=== PATIENT | male | born 1990 | race Hispanic/Latino ===

== ENCOUNTER 2017-02-16 08:51 | Day surgery (SDC) | payer BC ==
[2017-02-16 09:14] VITALS: BMI 19.6
[2017-02-16] MEDS ORDERED: Methylene Blue 10 mg/mL(10ml) IV ONE (10:00)
[2017-02-16] MEDS ORDERED: Lactated Ringer's 1,000 ML IV ONE (10:31)
[2017-02-16] MEDS ORDERED: Propofol 10 mg/ml Inj (20 ML) ONE ×2 (10:34)
[2017-02-16] MEDS ORDERED: Lactated Ringer's 500 ML IV SCH (10:45)
[2017-02-16 11:33] VITALS: TEMP 98.2
[2017-02-16 13:18] VITALS: BP 99/66; PULSE 83; RESP 18; O2SAT 98
== END 2017-02-16 12:30 | disposition home or self-care (01) ==
LOC: C.ENDO 08:51
PROVIDERS: ATTEND Internal Medicine Gastroenterology
DX: K51.50 Left sided colitis without complications (principal); Z79.899 Other long term (current) drug therapy
CPT/HCPCS: 45380; 88305; J2704; J3010; J7120

== ENCOUNTER 2017-02-25 14:11 | Inpatient (IN) | payer BC ==
[2017-02-25 14:11] VITALS: BMI 19.6
[2017-02-25] MEDS ORDERED: Sodium Chloride 0.9% 1,000 ML IV STA (15:16)
[2017-02-25] MEDS ORDERED: Iohexol 240 (50 ml) PO STA (15:16)
--- NOTE | 2017-02-25 15:21 | C.PDOC ---
History Of Present Illness 26yo male with history of ulcerative colitis, presents to ED with complaints of abdominal pain, present for the past 3 days. Paitent states he spoke to his GI Dr. Toro who advised him to Immodium and if it provieds no relief, present to the ER for further evaluation. The patient reports this is not the worst episode of his Ulcerative Colitis flare up but states "I just don't feel good." He reports associated nausea and loss of appetite but denies any fever or vomiting. He has no other medical complaints. Time Seen by Provider: 02/25/17 14:55 Chief Complaint (Nursing): Abdominal Pain History Per: Patient History/Exam Limitations: no limitations Onset/Duration Of Symptoms: Days Current Symptoms Are (Timing): Still Present Location Of Pain/Discomfort: Diffuse Quality Of Discomfort: "Pain" Associated Symptoms: Nausea. denies: Fever, Vomiting Additional History Per: Patient Past Medical History Reviewed: Historical Data, Nursing Documentation, Vital Signs Vital Signs: Last Vital Signs Temp 98.1 F 02/25/17 17:19 Pulse 90 02/25/17 17:19 Resp 16 02/25/17 17:19 BP 100/62 02/25/17 17:19 Pulse Ox 98 02/25/17 19:06 - Medical History PMH: Denies: Chronic Kidney Disease Other PMH: ulcerative colitis Surgical History: No Surg Hx - [facility] Procedures INFUSION OF IMMUNOSUPPRESSIVE ANTIBODY THERAPY (10/09/14) Family History: States: Unknown Family Hx - Social History Hx Alcohol Use: No Hx Substance Use: No - Immunization History Hx Tetanus Toxoid Vaccination: Yes Hx Influenza Vaccination: No Hx Pneumococcal Vaccination: No Review Of Systems Except As Marked, All Systems Reviewed And Found Negative. Constitutional: Negative for: Fever Gastrointestinal: Positive for: Nausea, Abdominal Pain. Negative for: Vomiting Physical Exam - Physical Exam Appears: Non-toxic Skin: Normal Color Head: Atraumatic, Normacephalic Eye(s): bilateral: Normal Inspection Throat: Normal Neck: Supple Chest: Symmetrical Cardiovascular: Rhythm Regular Respiratory: Normal Breath Sounds Gastrointestinal/Abdominal: Soft, Tenderness (left lower quadrant) Neurological/Psych: Oriented x3, Normal Speech ED Course And Treatment - Laboratory Results Result Diagrams: 02/25/17 15:52 02/25/17 15:52 O2 Sat by Pulse Oximetry: 98 (RA) Pulse Ox Interpretation: Normal Progress Note: Case was d/w GI data management consultant (partner of ), instructed to start Cipro, Flagyl, IV fluid. Case was d/w who accepted an admission to NH and requested to order ESR. Medical Decision Making Medical Decision Making: Impression: Ulcerative colitis exacerbation Plan: -- CT AP w/ PO & IV Contrast -- Labs -- IV Fluids -- Zofran 4mg IVP Time: 1800 PROCEDURE: CT Abdomen and Pelvis with contrast HISTORY: abd pain, h/o ulcer. colitis, colonoscopy 02/16 COMPARISON: None. TECHNIQUE: Contrast dose: 100 cc Omnipaque 350 Radiation dose: Total exam DLP = 337.32 mGy-cm. This CT exam was performed using one or more of the following dose reduction techniques: Automated exposure control, adjustment of the mA and/or kV according to patient size, and/or use of iterative reconstruction technique. FINDINGS: LOWER THORAX: Unremarkable. LIVER: Unremarkable. No gross lesion or ductal dilatation. GALLBLADDER AND BILE DUCTS: Unremarkable. PANCREAS: Unremarkable. No gross lesion or ductal dilatation. SPLEEN: Unremarkable. ADRENALS: Unremarkable. No mass. KIDNEYS AND URETERS: Unremarkable. No hydronephrosis. No solid mass. VASCULATURE: Unremarkable. No aortic aneurysm. BOWEL: Colitis extending from the mid descending colon to the sigmoid and rectum. The right hemicolon is spared. APPENDIX: No abnormalities to suggest acute appendicitis. No right lower quadrant inflammatory processes identified. PERITONEUM: Unremarkable. No free fluid. No free air. LYMPH NODES: Unremarkable. No enlarged lymph nodes. BLADDER: Unremarkable. REPRODUCTIVE: Unremarkable. BONES: No acute fracture. OTHER FINDINGS: None. IMPRESSION: Colitis, severe extending from the mid descending colon to the rectum. No loculated air, free air, drainable collection identified. Disposition - Disposition Disposition Time: 19:21 Condition: FAIR - Clinical Impression Clinical Impression: Colitis, ulcerative - PA / ASSET ACCOUNTANT / Resident Statement MD/DO has reviewed & agrees with the documentation as recorded. - Scribe Statement The provider has reviewed the documentation as recorded by the Vicente Garcia Provider Scribe Attestation: All medical record entries made by the Vicente were at my direction and personally dictated by me. I have reviewed the chart and agree that the record accurately reflects my personal performance of the history, physical exam, medical decision making, and the department course for this patient. I have also personally directed, reviewed, and agree with the discharge instructions and disposition. Decision To Admit - Pt Status Changed To: Hospital Disposition Of: Inpatient - Admit Certification Admit to Inpatient:: After my assessment, the patient will require hospitalization for at least two midnights. This is because of the severity of symptoms shown, intensity of services needed, and/or the medical risk in this patient being treated as an outpatient. - InPatient: Physician Admission Certification:: pt will need more than 2 days of hospitalization - . Bed Request Type: Regular Admitting Physician: Suraj Robert Patient Diagnosis: Colitis, ulcerative
[2017-02-25] MEDS ORDERED: Iohexol 240 (50 ml) ONE (15:34)
[2017-02-25] MEDS ORDERED: Sodium Chloride 0.9% 1,000 ML ONE (15:34)
[2017-02-25 15:57] LABS: BASO # 0.1 K/uL (0.0-0.2); BASO % 0.7 % (0.0-2.0); EOS # 0.1 K/uL (0.0-0.7); EOS % 1.3 % (0.0-4.0); HEMOGLOBIN 16.3 g/dL (12.0-18.0); LYMPH # 3.1 K/uL (1.0-4.3); MEAN CELL VOLUME 92.1 fL (80.0-94.0); MEAN CORPUSCULAR HGB CONC 35.8 g/dL (33.0-37.0); MEAN PLATELET VOLUME 8.9 fL (7.2-11.7); MONO # 0.9 K/uL (0.0-0.8); MONO % 8.1 % (0.0-10.0); NEUT # 6.5 K/uL (1.8-7.0); NEUT % 60.9 % (50.0-75.0); NRBC % 0.1 % (0.0-2.0); RBC 4.93 Mil/uL (4.40-5.90); RED CELL DISTRIBUTION WIDTH 12.5 % (11.5-14.5); WHITE BLOOD COUNT 10.6 K/uL (4.8-10.8)
[2017-02-25 16:00] LABS: URINE BACTERIA RARE (<OCC); URINE BILIRUBIN NEGATIVE (NEGATIVE); URINE BLOOD NEGATIVE (NEGATIVE); URINE CLARITY Clear (Clear); URINE COLOR Straw (YELLOW); URINE GLUCOSE (UA) NORMAL (Normal); URINE LEUKOCYTE ESTERASE NEG Leu/uL (Negative); URINE NITRATE NEGATIVE (NEGATIVE); URINE PROTEIN NEGATIVE (NEGATIVE); URINE UROBILINOGEN NORMAL mg/dL (0.2-1.0)
[2017-02-25 16:39] LABS: ALB/GLOB RATIO 1.2 (1.0-2.1); ALBUMIN 4.3 g/dL (3.5-5.0); ALT/SGPT 17 U/L (21-72); AST/SGOT 26 U/L (17-59); BLOOD UREA NITROGEN 9 mg/dL (9-20); CALCIUM 9.3 mg/dl (8.6-10.4); GFR AFRICAN-AMERICAN > 60; GFR NON-AFRICAN AMERICAN > 60; LIPASE 49 U/L (23-300)
[2017-02-25] MEDS ORDERED: Iohexol 350mg/ml 100 ML ONE (17:12)
--- NOTE | 2017-02-25 17:55 | CT ---
PROCEDURE: CT Abdomen and Pelvis with contrast HISTORY: abd pain, h/o ulcer. colitis, colonoscopy 02/16 COMPARISON: None. TECHNIQUE: Contrast dose: 100 cc Omnipaque 350 Radiation dose: Total exam DLP = 337.32 mGy-cm. This CT exam was performed using one or more of the following dose reduction techniques: Automated exposure control, adjustment of the mA and/or kV according to patient size, and/or use of iterative reconstruction technique. FINDINGS: LOWER THORAX: Unremarkable. LIVER: Unremarkable. No gross lesion or ductal dilatation. GALLBLADDER AND BILE DUCTS: Unremarkable. PANCREAS: Unremarkable. No gross lesion or ductal dilatation. SPLEEN: Unremarkable. ADRENALS: Unremarkable. No mass. KIDNEYS AND URETERS: Unremarkable. No hydronephrosis. No solid mass. VASCULATURE: Unremarkable. No aortic aneurysm. BOWEL: Colitis extending from the mid descending colon to the sigmoid and rectum. The right hemicolon is spared. APPENDIX: No abnormalities to suggest acute appendicitis. No right lower quadrant inflammatory processes identified. PERITONEUM: Unremarkable. No free fluid. No free air. LYMPH NODES: Unremarkable. No enlarged lymph nodes. BLADDER: Unremarkable. REPRODUCTIVE: Unremarkable. BONES: No acute fracture. OTHER FINDINGS: None. IMPRESSION: Colitis, severe extending from the mid descending colon to the rectum. No loculated air, free air, drainable collection identified.
[2017-02-25] MEDS ORDERED: Ciprofloxacin 400mg/200ml D5W 400 MG/200 ML BAG IV STA (18:48)
[2017-02-25] MEDS ORDERED: metroNIDAZOLE IV 500 mg/100 ml 500 MG/100 ML BAG IV STA (18:48)
[2017-02-25] MEDS ORDERED: Dextrose 5%/0.9% NS 1,000 ML IV ONE (18:49)
[2017-02-25] MEDS ORDERED: [UNRECOGNIZED DRUG - OTHER] PO SCH (19:30)
[2017-02-25 21:04] VITALS: RESP 20
--- NOTE | 2017-02-25 22:47 | CP.PCM.HP ---
History of Present Illness - History of Present Illness History of Present Illness: CC: Diarrhea x 2 days HPI: 26yo male with history of ulcerative colitis diagnosed 8 years ago,seeing GI out pateint and on immunosuppresive therapy, otherwise healthuy and independent in ADL presents to ED with complaints of abdominal pain & loose wattery stools present for the past 3 days. Paitent states spoke to his GI Dr. Toro who advised him to Immodium and if it provieds no relief, present to the ER for further evaluation. The patient reports this is not the worst episode of his Ulcerative Colitis flare up but states "I just don't feel good." He reports associated nausea and loss of appetite but denies any fever or vomiting. He has no other medical complaints. His abdominal feels cramping. pain is mostly in hypogastric Lower abdominal area. Present on Admission - Present on Admission Any Indicators Present on Admission: Yes Review of Systems - Review of Systems Systems not reviewed;Unavailable: Acuity of Condition - Constitutional Constitutional: Fatigue, Lethargy, Malaise - EENT Eyes: absent: As Per HPI, Blind Spots, Blurred Vision, Change in Vision, Decreased Night Vision, Diplopia, Discharge, Dry Eye, Exophthalmos, Floaters, Irritation, Itchy Eyes, Loss of Peripheral Vision, Pain, Photophobia, Requires Corrective Lenses, Sees Flashes, Spots in Vision, Tunnel Vision, Other Visual Disturbances, Loss of Vision, Other Nose/Mouth/Throat: absent: As Per HPI, Epistaxis, Nasal Congestion, Nasal Discharge, Nasal Obstruction, Nasal Trauma, Nose Pain, Post Nasal Drip, Sinus Pain, Sinus Pressure, Bleeding Gums, Change in Voice, Dental Pain, Dry Mouth, Dysphagia, Halitosis, Hoarsness, Lip Swelling, Mouth Lesions, Mouth Pain, Odynophagia, Sore Throat, Throat Swelling, Tongue Swelling, Facial Pain, Neck Pain, Neck Mass, Other - Cardiovascular Cardiovascular: absent: As Per HPI, Acrocyanosis, Chest Pain, Chest Pain at Rest , Chest Pain with Activity, Claudication, Diaphoresis, Dyspnea, Dyspnea on Exertion, Edema, Irregular Heart Rhythm, Pain Radiating to Arm/Neck/Jaw, Leg Edema, Leg Ulcers, Lightheadedness, Orthopnea, Palpitations, Paroxysmal Nocturnal Dyspnea, Pedal Edema, Radiating Pain, Rapid Heart Rate, Slow Heart Rate, Syncope, Other - Respiratory Respiratory: absent: As Per HPI, Cough, Dyspnea, Hemoptysis, Dyspnea on Exertion , Wheezing, Snoring, Stridor, Pain on Inspiration, Chest Congestion, Excessive Mucous Production, Change in Mucous Color, Pain with Coughing, Other - Gastrointestinal Gastrointestinal: Abdominal Pain, Cramping, Diarrhea, Loose Stools. absent: As Per HPI, Belching, Bloating, Change in Bowel Habits, Change in Stool Character, Coffee Ground Emesis, Constipation, Dyspepsia, Dysphagia, Early Satiety, Excessive Flatus, Fecal Incontinence, Heartburn, Hematemesis, Hematochezia, Melena, Nausea, Odynophagia, Temesmus, Vomiting, Other - Genitourinary Genitourinary: absent: As Per HPI, Change in Urinary Stream, Difficulty Urinating, Dysuria, Flank Pain, Hematuria, Pyuria, Nocturia, Urinary Incontinence, Urinary Frequency, Urinary Hesitance, Urinary Urgency, Voiding Freq/Small Amts, Freq UTI, Hx Renal/Bladder Calculi, Hx /Renal Surgery, Bladder Distension, Other Past Patient History - Infectious Disease Hx of Infectious Diseases: None - Past Medical History & Family History Past Medical History?: No - Past Social History Smoking Status: Never Smoked - CARDIAC Hx Cardiac Disorders: No - PULMONARY Hx Respiratory Disorders: No - NEUROLOGICAL Hx Neurological Disorder: No - RENAL Hx Chronic Kidney Disease: No - ENDOCRINE/METABOLIC Hx Endocrine Disorders: No - HEMATOLOGICAL/ONCOLOGICAL Hx Blood Disorders: No - INTEGUMENTARY Hx Dermatological Problems: No - MUSCULOSKELETAL/RHEUMATOLOGICAL Hx Falls: No - GASTROINTESTINAL Hx Colitis: Yes (Diagnosed -2009) Other/Comment: Ulcerative colitis on Remicade infusions - GENITOURINARY/GYNECOLOGICAL Hx Genitourinary Disorders: No - PSYCHIATRIC Hx Substance Use: No - SURGICAL HISTORY Hx Surgeries: No - ANESTHESIA Hx Anesthesia: No Meds Allergies/Adverse Reactions: Allergies Allergy/AdvReac Type Severity Reaction Status Date / Time nut - unspecified [nut] Allergy SWELLING Verified 02/16/17 09:13 Physical Exam - Constitutional Appears: No Acute Distress - Head Exam Head Exam: ATRAUMATIC, NORMAL INSPECTION, NORMOCEPHALIC - Eye Exam Eye Exam: EOMI, Normal appearance, PERRL Pupil Exam: NORMAL ACCOMODATION, PERRL - ENT Exam ENT Exam: Mucous Membranes Moist, Normal Exam - Neck Exam Neck exam: Positive for: Normal Inspection - Respiratory Exam Respiratory Exam: Clear to Auscultation Bilateral, NORMAL BREATHING PATTERN - Cardiovascular Exam Cardiovascular Exam: REGULAR RHYTHM - GI/Abdominal Exam GI & Abdominal Exam: Normal Bowel Sounds, Tenderness. absent: Bruit, Diminished Bowel Sounds, Distended, Firm, Guarding, Hernia, Hyperactive Bowel Sounds, Hypoactive Bowel Sounds, Mass, Organomegaly, Pulsatile Mass, Rebound, Rigid, Soft - Rectal Exam Rectal Exam: Deferred - Neurological Exam Neurological exam: Alert, CN II-XII Intact, Normal Gait, Oriented x3, Reflexes Normal - Psychiatric Exam Psychiatric exam: Normal Affect, Normal Mood - Skin Skin Exam: Dry, Intact, Normal Color, Warm Results - Vital Signs Recent Vital Signs: Last Vital Signs Temp 98.5 F 02/25/17 20:47 Pulse 80 02/25/17 20:47 Resp 20 02/25/17 20:47 BP 104/64 02/25/17 20:47 Pulse Ox 98 02/25/17 20:47 - Labs Result Diagrams: 02/25/17 15:52 02/25/17 15:52 Labs: Laboratory Results - last 24 hr 02/25/17 02/25/17 02/25/17 15:17 15:52 15:52 WBC 10.6 RBC 4.93 Hgb 16.3 Hct 45.4 MCV 92.1 MCH 33.0 H MCHC 35.8 RDW 12.5 Plt Count 236 MPV 8.9 Neut % (Auto) 60.9 Lymph % (Auto) 29.0 [place] % (Auto) 8.1 Eos % (Auto) 1.3 Baso % (Auto) 0.7 Neut # 6.5 Lymph # 3.1 [place] # 0.9 H Eos # 0.1 Baso # 0.1 ESR Sodium 135 Potassium 4.3 Chloride 99 Carbon Dioxide 26 Anion Gap 13 BUN 9 Creatinine 0.9 Est GFR ( Amer) > 60 Est GFR (Non-Af Amer) > 60 Random Glucose 95 Calcium 9.3 Total Bilirubin 1.7 H AST 26 ALT 17 L Alkaline Phosphatase 51 Total Protein 7.9 Albumin 4.3 Globulin 3.7 Albumin/Globulin Ratio 1.2 Lipase 49 Urine Color Urine Clarity Urine pH Ur Specific [place] Urine Protein Urine Glucose (UA) Urine Ketones Urine Blood Urine Nitrate Urine Bilirubin Urine Urobilinogen Ur Leukocyte Esterase Urine RBC (Auto) Urine Bacteria Stool Occult Blood C. difficile Ag & Toxin Negative 02/25/17 02/25/17 02/25/17 15:52 16:54 18:54 WBC RBC Hgb Hct MCV MCH MCHC RDW Plt Count MPV Neut % (Auto) Lymph % (Auto) [place] % (Auto) Eos % (Auto) Baso % (Auto) Neut # Lymph # [place] # Eos # Baso # ESR 8 Sodium Potassium Chloride Carbon Dioxide Anion Gap BUN Creatinine Est GFR ( Amer) Est GFR (Non-Af Amer) Random Glucose Calcium Total Bilirubin AST ALT Alkaline Phosphatase Total Protein Albumin Globulin Albumin/Globulin Ratio Lipase Urine Color Straw Urine Clarity Clear Urine pH 6.0 Ur Specific [place] 1.004 Urine Protein Negative Urine Glucose (UA) Normal Urine Ketones Negative Urine Blood Negative Urine Nitrate Negative Urine Bilirubin Negative Urine Urobilinogen Normal Ur Leukocyte Esterase Neg Urine RBC (Auto) < 1 Urine Bacteria Rare Stool Occult Blood Positive H C. difficile Ag & Toxin Assessment & Plan (1) Colitis, ulcerative Assessment and Plan: GI consult stool culture/ ananlysis supportive care flagyl, cipro Status: Acute (2) Dehydration Status: Acute
[2017-02-26 00:33] VITALS: O2SAT 96
[2017-02-26] MEDS: Sodium Chloride 0.9% 1,000 ML IV SCH ×2 (01:55→05:25)
[2017-02-26] MEDS ORDERED: metroNIDAZOLE IV 500 mg/100 ml 250 MG in Premixed IV 1 EA IVPB SCH (02:00)
[2017-02-26] MEDS ORDERED: Ciprofloxacin 400mg/200ml D5W 400 MG/200 ML BAG IVPB SCH (08:00)
[2017-02-26 08:34] VITALS: BP 114/62; PULSE 85; TEMP 98.4
--- NOTE | 2017-02-26 09:24 | CP.PCM.CON ---
History of Present Illness - History of Present Illness History of Present Illness: Gastroenterology Fellow/PGY5 Consult Note 26 year old male with history of left-sided ulcerative colitis on Remicade ( diagnosed 8 years ago) presenting with diarrhea and rectal pain. Patient notes eating spicy avocado on Tuesday followed by increased loose stool frequency of 3-5 episodes Tuesday to Tuesday. Notes baseline stool frequency of 1-2 episodes daily. Admits to unintentional weight loss due to loss of appetite and vague left lower abdominal pain. Denies fever, chills, sweats, nausea, vomiting , melena, hematochezia, sick contacts, recent antibiotics, or recent travel. Notes lapse of 14 weeks off Remicade from September to December with last dose two weeks ago. 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 Family- maternal and paternal grandfathers- lung cancer Social- denies tobacco, alcohol, illicit drug use Surgery- none Review of Systems - Review of Systems Review of Systems: 12-point review of systems negative except for as above Past Patient History - Infectious Disease Hx of Infectious Diseases: None - Past Medical History & Family History Past Medical History?: No - Past Social History Smoking Status: Never Smoked - CARDIAC Hx Cardiac Disorders: No - PULMONARY Hx Respiratory Disorders: No - NEUROLOGICAL Hx Neurological Disorder: No - RENAL Hx Chronic Kidney Disease: No - ENDOCRINE/METABOLIC Hx Endocrine Disorders: No - HEMATOLOGICAL/ONCOLOGICAL Hx Blood Disorders: No - INTEGUMENTARY Hx Dermatological Problems: No - MUSCULOSKELETAL/RHEUMATOLOGICAL Hx Falls: No - GASTROINTESTINAL Hx Colitis: Yes (Diagnosed -2009) Other/Comment: Ulcerative colitis on Remicade infusions - GENITOURINARY/GYNECOLOGICAL Hx Genitourinary Disorders: No - PSYCHIATRIC Hx Substance Use: No - SURGICAL HISTORY Hx Surgeries: No - ANESTHESIA Hx Anesthesia: No Meds Allergies/Adverse Reactions: Allergies Allergy/AdvReac Type Severity Reaction Status Date / Time nut - unspecified [nut] Allergy SWELLING Verified 02/16/17 09:13 - Medications Medications: Current Medications Home Med (Bifidobacterium Breve/Bifido2 [Adult Probiotic]) 1 cap PO BID [facility] Home Med (Turmeric/Turmeric Root Extract [Turmeric 450-50 Mg Capsule]) 1 cap PO DAILY [facility] Sodium Chloride (Sodium Chloride 0.9%) 1,000 mls @ 100 mls/hr IV .Q10H [facility] Last Admin: 02/26/17 05:25 Dose: Not Given Mesalamine (Rowasa Enema) 4 gm RC BID [facility] Morphine Sulfate (Morphine) 2 mg IVP Q4 PRN PRN Reason: Pain, moderate (4-7) Pneumococcal Polyvalent Vaccine (Pneumovax 23 Vaccine) 0.5 ml IM .ONCE ONE Stop: 02/28/17 10:01 Physical Exam - Constitutional Appears: Non-toxic, No Acute Distress - Head Exam Head Exam: ATRAUMATIC, NORMOCEPHALIC - Eye Exam Eye Exam: EOMI, PERRL. absent: Scleral icterus Pupil Exam: PERRL. absent: Miosis, Mydriatic - ENT Exam ENT Exam: Mucous Membranes Moist, Normal Oropharynx - Neck Exam Neck exam: Positive for: Full Rom, Normal Inspection - Respiratory Exam Respiratory Exam: Clear to Auscultation Bilateral. absent: Rales, Rhonchi, Wheezes - Cardiovascular Exam Cardiovascular Exam: RRR, +S1, +S2. absent: Gallop, Rubs - GI/Abdominal Exam GI & Abdominal Exam: Normal Bowel Sounds, Soft, Tenderness Additional comments: mild LLQ tenderness to palpation - Extremities Exam Extremities exam: Positive for: normal inspection. Negative for: pedal edema - Neurological Exam Neurological exam: Alert - Psychiatric Exam Psychiatric exam: Normal Affect, Normal Mood - Skin Skin Exam: Dry, Intact, Normal Color, Warm Results - Vital Signs Recent Vital Signs: Last Vital Signs Temp 98.4 F 02/26/17 08:33 Pulse 85 02/26/17 08:33 Resp 20 02/26/17 08:33 BP 114/62 02/26/17 08:33 Pulse Ox 96 02/26/17 08:33 - Labs Result Diagrams: 02/25/17 15:52 02/25/17 15:52 Labs: Laboratory Results - last 24 hr 02/25/17 02/25/17 02/25/17 15:17 15:52 15:52 WBC 10.6 RBC 4.93 Hgb 16.3 Hct 45.4 MCV 92.1 MCH 33.0 H MCHC 35.8 RDW 12.5 Plt Count 236 MPV 8.9 Neut % (Auto) 60.9 Lymph % (Auto) 29.0 [place] % (Auto) 8.1 Eos % (Auto) 1.3 Baso % (Auto) 0.7 Neut # 6.5 Lymph # 3.1 [place] # 0.9 H Eos # 0.1 Baso # 0.1 ESR Sodium 135 Potassium 4.3 Chloride 99 Carbon Dioxide 26 Anion Gap 13 BUN 9 Creatinine 0.9 Est GFR ( Amer) > 60 Est GFR (Non-Af Amer) > 60 Random Glucose 95 Calcium 9.3 Total Bilirubin 1.7 H AST 26 ALT 17 L Alkaline Phosphatase 51 Total Protein 7.9 Albumin 4.3 Globulin 3.7 Albumin/Globulin Ratio 1.2 Lipase 49 Urine Color Urine Clarity Urine pH Ur Specific [place] Urine Protein Urine Glucose (UA) Urine Ketones Urine Blood Urine Nitrate Urine Bilirubin Urine Urobilinogen Ur Leukocyte Esterase Urine RBC (Auto) Urine Bacteria Stool Occult Blood C. difficile Ag & Toxin Negative 02/25/17 02/25/17 02/25/17 15:52 16:54 18:54 WBC RBC Hgb Hct MCV MCH MCHC RDW Plt Count MPV Neut % (Auto) Lymph % (Auto) [place] % (Auto) Eos % (Auto) Baso % (Auto) Neut # Lymph # [place] # Eos # Baso # ESR 8 Sodium Potassium Chloride Carbon Dioxide Anion Gap BUN Creatinine Est GFR ( Amer) Est GFR (Non-Af Amer) Random Glucose Calcium Total Bilirubin AST ALT Alkaline Phosphatase Total Protein Albumin Globulin Albumin/Globulin Ratio Lipase Urine Color Straw Urine Clarity Clear Urine pH 6.0 Ur Specific [place] 1.004 Urine Protein Negative Urine Glucose (UA) Normal Urine Ketones Negative Urine Blood Negative Urine Nitrate Negative Urine Bilirubin Negative Urine Urobilinogen Normal Ur Leukocyte Esterase Neg Urine RBC (Auto) < 1 Urine Bacteria Rare Stool Occult Blood Positive H C. 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 Plan: >discontinue antibiotics >start Rowasa BID >pending outpatient labs to rule out Remicade resistance >diet as tolerated >counselled on fluid hydration >recommend bland diet with present symptoms and trial of low FODMAPs diet >follow up with Dr. Toro next week for lab results and re-evaluation of rectal pain and stool frequency >clear for discharge from GI standpoint >discussed with primary team
[2017-02-26] MEDS ORDERED: Influenza Vaccine 60 mcg/0.5 mL SYR (4YR UP) IM ONE (10:00)
[2017-02-26] MEDS ORDERED: TURMERIC PO SCH (10:00)
[2017-02-26] MEDS ORDERED: TURMERIC ROOT EXTRACT PO SCH (10:00)
[2017-02-26] MEDS ORDERED: Pneumococcal 23-Valent Vaccine IM ONE (12:30)
--- NOTE | 2017-02-26 17:22 | CP.PCM.PN ---
Subjective - Date & Time of Evaluation Date of Evaluation: 02/26/17 Time of Evaluation: 11:00 - Subjective Subjective: Alert, awake, no acute pain or distress. Objective - Vital Signs/Intake and Output Vital Signs (last 24 hours): Temp Pulse Resp BP Pulse Ox 98.4 F 85 20 114/62 96 02/26/17 08:33 02/26/17 08:33 02/26/17 08:33 02/26/17 08:33 02/26/17 08:33 Intake and Output: 02/26/17 02/26/17 06:59 18:59 Intake Total 1350 Output Total 750 Balance 600 - Labs Labs: 02/25/17 15:52 02/25/17 15:52 Assessment and Plan - Assessment and Plan (Free Text) Assessment: Patient is seen and examined. Alert, awake, wants to go home. Denies acute pain , diarrhea improving, NAD. D/W DR Robert, cleared by GI, plan to discharge home today on [place] BID. Advised to follow up with DR Austin in 1 week.
--- NOTE | 2017-02-26 23:39 | CP.PCM.DIS ---
Provider - Provider Date of Admission: 02/25/17 18:49 Attending physician: Suraj Robert MD Diagnosis - Discharge Diagnosis (1) Colitis, ulcerative Status: Acute (2) Dehydration Status: Acute Hospital Course - Lab Results Lab Results: Micro Results 02/25/17 15:17 Stool Stool Culture - Preliminary LACTOSE WOOD ROUTER, SUB SELENITE BROTH. Most Recent Lab Values WBC 10.6 K/uL (4.8-10.8) 02/25/17 15:52 RBC 4.93 Mil/uL (4.40-5.90) 02/25/17 15:52 Hgb 16.3 g/dL (12.0-18.0) 02/25/17 15:52 Hct 45.4 % (35.0-51.0) 02/25/17 15:52 MCV 92.1 fL (80.0-94.0) 02/25/17 15:52 MCH 33.0 pg (27.0-31.0) H 02/25/17 15:52 MCHC 35.8 g/dL (33.0-37.0) 02/25/17 15:52 RDW 12.5 % (11.5-14.5) 02/25/17 15:52 Plt Count 236 K/uL (130-400) 02/25/17 15:52 MPV 8.9 fL (7.2-11.7) 02/25/17 15:52 Neut % (Auto) 60.9 % (50.0-75.0) 02/25/17 15:52 Lymph % (Auto) 29.0 % (20.0-40.0) 02/25/17 15:52 Evangeline % (Auto) 8.1 % (0.0-10.0) 02/25/17 15:52 Eos % (Auto) 1.3 % (0.0-4.0) 02/25/17 15:52 Baso % (Auto) 0.7 % (0.0-2.0) 02/25/17 15:52 Neut # 6.5 K/uL (1.8-7.0) 02/25/17 15:52 Lymph # 3.1 K/uL (1.0-4.3) 02/25/17 15:52 Evangeline # 0.9 K/uL (0.0-0.8) H 02/25/17 15:52 Eos # 0.1 K/uL (0.0-0.7) 02/25/17 15:52 Baso # 0.1 K/uL (0.0-0.2) 02/25/17 15:52 ESR 8 mm/hr (0-15) 02/25/17 18:54 Sodium 135 mmol/L (132-148) 02/25/17 15:52 Potassium 4.3 mmol/L (3.6-5.2) 02/25/17 15:52 Chloride 99 mmol/L (98-107) 02/25/17 15:52 Carbon Dioxide 26 mmol/L (22-30) 02/25/17 15:52 Anion Gap 13 (10-20) 02/25/17 15:52 BUN 9 mg/dL (9-20) 02/25/17 15:52 Creatinine 0.9 mg/dL (0.8-1.5) 02/25/17 15:52 Est GFR ( Amer) > 60 02/25/17 15:52 Est GFR (Non-Af Amer) > 60 02/25/17 15:52 Random Glucose 95 mg/dL (75-110) 02/25/17 15:52 Calcium 9.3 mg/dl (8.6-10.4) 02/25/17 15:52 Total Bilirubin 1.7 mg/dL (0.2-1.3) H 02/25/17 15:52 AST 26 U/L (17-59) 02/25/17 15:52 ALT 17 U/L (21-72) L 02/25/17 15:52 Alkaline Phosphatase 51 U/L (38-126) 02/25/17 15:52 Total Protein 7.9 g/dL (6.3-8.3) 02/25/17 15:52 Albumin 4.3 g/dL (3.5-5.0) 02/25/17 15:52 Globulin 3.7 gm/dL (2.2-3.9) 02/25/17 15:52 Albumin/Globulin Ratio 1.2 (1.0-2.1) 02/25/17 15:52 Lipase 49 U/L (23-300) 02/25/17 15:52 Urine Color Straw (YELLOW) 02/25/17 15:52 Urine Clarity Clear (Clear) 02/25/17 15:52 Urine pH 6.0 (5.0-8.0) 02/25/17 15:52 Ur Specific Eldred 1.004 (1.003-1.030) 02/25/17 15:52 Urine Protein Negative mg/dL (NEGATIVE) 02/25/17 15:52 Urine Glucose (UA) Normal mg/dL (Normal) 02/25/17 15:52 Urine Ketones Negative mg/dL (NEGATIVE) 02/25/17 15:52 Urine Blood Negative (NEGATIVE) 02/25/17 15:52 Urine Nitrate Negative (NEGATIVE) 02/25/17 15:52 Urine Bilirubin Negative (NEGATIVE) 02/25/17 15:52 Urine Urobilinogen Normal mg/dL (0.2-1.0) 02/25/17 15:52 Ur Leukocyte Esterase Neg Jamarcus/uL (Negative) 02/25/17 15:52 Urine RBC (Auto) < 1 /hpf (0-3) 02/25/17 15:52 Urine Bacteria Rare (<OCC) 02/25/17 15:52 Stool Occult Blood Positive (NEGATIVE) H 02/25/17 16:54 C. difficile Ag & Toxin Negative (NEGATIVE) 02/25/17 15:17 - Hospital Course Hospital Course: Patient is seen and examined. Alert, awake, wants to go home. Denies acute pain , diarrhea improving, NAD, cleared by GI, plan to discharge home today on [place] CA BID. Advised to follow up with DR Austin in 1 week. Discharge Exam - Head Exam Head Exam: ATRAUMATIC, NORMOCEPHALIC Discharge Plan - Discharge Medications Prescriptions: Mesalamine [[place] Enema] 4 gm RC BID #[id number] nma - Follow Up Plan Condition: FAIR Disposition: HOME/ ROUTINE Instructions: Mesalamine (Into the rectum), Dehydration (DC), Diet for Ulcers and Gastritis (GEN), Ulcerative Colitis (DC) Referrals: Norman Toro MD [Staff Provider] - Suraj Robert MD [Staff Provider] -
== END 2017-02-26 13:46 | disposition home or self-care (01) | DRG 387 ==
LOC: C.ER 14:11 → C.9E 18:49 → C.3T 19:24
PROVIDERS: ADMIT Internal Medicine; ATTEND Internal Medicine
DX: K51.50 Left sided colitis without complications (principal); E86.0 Dehydration; K62.89 Other specified diseases of anus and rectum; Z80.1 Family history of malignant neoplasm of trachea, bronchus and lung